=== PATIENT | female | born 1990 | race Caucasian/White ===

== ENCOUNTER 2016-08-08 10:48 | Emergency (ER) | payer OTHER ==
[2016-08-08] MEDS ORDERED: NS 1,000 ML IV ONE (11:15)
[2016-08-08] MEDS ORDERED: ZOFRAN IV ONE (11:15)
[2016-08-08] MEDS ORDERED: MORPHINE IV ONE (11:15)
--- NOTE | 2016-08-08 11:17 | PROVIDER DOCUMENTATION ---
HPI-Abdominal Pain/GI Problem - General Chief Complaint: Abdominal Pain Stated Complaint: ABD PAIN,BACK PAIN Time Seen by Provider: 08/08/16 11:00 Source: patient Allergies/Adverse Reactions: Patient Allergies Allergy/AdvReac Type Severity Reaction Status Date / Time No Known Allergies Allergy Verified 08/08/16 11:44 - History of Present Illness-ABD Nature of Presenting Problems: Pt is a 25 yof who came to the ED with a cc of abdominal pain. Pt reports she had right sided abdominal pain since last night. Pt reports the pain comes and goes. When she got to work her pain came back and she was crying. Pt reports five years ago the doctor told her she needed to get her gallbladder taken out. Abdominal Pain Onset Location: reports: RLQ Pain Radiation: reports: back Quality of Pain: reports: cramping Severity in ED: reports: mild Onset/Duration: reports: last night Timing: reports: still present Activities at Onset: reports: light activity Exposure to sick contacts?: No Modifying Factors: improves with: massage, movement Last BM: unsure Dark Stools Present?: reports: none noticed Rectal Bleeding: reports: none Rectal Pain: reports: none Bruising or Bleeding Gums?: No Similar Symptoms Previously?: No Recently seen or treated by another doctor?: No Review of Systems - Adult - REVIEW OF SYSTEMS - ADULT Constitutional: denies: chills, fever Eyes: denies: blurred vision, double vision Ears, Nose, Mouth & Throat: reports: no symptoms reported Cardiovascular: denies: orthopnea, poor circulation Respiratory: reports: no symptoms reported Gastrointestinal: reports: abdominal pain. denies: difficulty swallowing, nausea, vomiting Genitourinary: reports: no symptoms reported Musculoskeletal: reports: back pain. denies: frequent leg cramps, joint swelling Integumentary: reports: no symptoms reported Neurological: reports: no symptoms reported Psychiatric: reports: no symptoms reported Endocrine: reports: no symptoms reported Hematologic/Lymphatic: reports: no symptoms reported Allergic/Immunologic: reports: no symptoms reported All Other Systems: Reviewed and Negative Past History - Adult - PAST MEDICAL HISTORY-ADULT Review of Records: reports: Old Records Reviewed, Nursing Assessment Review Major Childhood Illnesses: reports: denies history Cardiovascular: reports: denies history Respiratory: reports: denies history Gastrointestinal: reports: denies history Obstetrical/Gynecological: reports: denies history Genitourinary: reports: denies history Musculoskeletal: reports: denies history Neurological: reports: denies history Endocrine/Immune: reports: denies history Other Conditions: reports: denies history - FAMILY HISTORY Family History: reviewed, not pertinent Physical Exam-General - PHYSICAL EXAM-ADULT Initial Vital Signs Reviewed: Yes - CONSTITUTIONAL General Appearance: appears well, alert, no apparent distress - EYES Eyes: PERRL/EOMI, pink conjunctivae - HEAD, EARS, NOSE, MOUTH & THROAT HENMT: normocephalic/atraumatic, moist mucous membranes, normal ENT inspection - NECK Neck: non-tender, full range of motion, normal inspection - RESPIRATORY Respiratory: chest non-tender, lungs clear, normal breath sounds - CARDIOVASCULAR Cardiovascular: normal peripheral pulses, regular rate, rhythm, no edema - GASTROINTESTINAL (ABDOMEN) Abdominal Exam: normal bowel sounds, soft, tenderness - LYMPHATIC Lymphatic: no adenopathy - MUSCULOSKELETAL Back Exam: normal inspection, no CVA tenderness, no vertebral tenderness Extremity: normal range of motion, non-tender, normal gait - SKIN Integumentary: normal color, normal turgor, warm/dry - NEUROLOGIC Neurologic: grossly normal, no motor/sensory deficits - PSYCHIATRIC Psych/Mental Status: normal mood/affect, normal thought content, normal thought process, oriented x 3 Progress - PLAN OF CARE/RESULTS Progress/Plan/Lab Results: Vital Signs - 24 hr 08/08/16 10:54 Temperature 98.1 F Pulse Rate 80 Respiratory 18 Rate Blood Pressure 127/70 O2 Sat by Pulse 100 Oximetry Orders Category Date Time Status Saline Loc DIRECTED Care 08/08/16 11:15 Active NPO Diet 08/08/16 11:15 Active RENAL STONE SEARCH [CT] Stat Exams 08/08/16 11:15 Ordered US GB < RUQ (LIMITED) [US] Stat Exams 08/08/16 11:15 Ordered AMYLASE [CHEM] Stat Lab 08/08/16 11:15 Uncollected CBC WITH ELECTRONIC DIFF [HEME] Stat Lab 08/08/16 11:15 Uncollected COMPREHENSIVE METABOLIC PANEL [CHEM] Stat Lab 08/08/16 11:15 Uncollected LIPASE [CHEM] Stat Lab 08/08/16 11:15 Uncollected TEST-URINE [PREG] Stat Lab 08/08/16 11:15 Uncollected URINALYSIS W/POSS RFLX CULT [URINALYSIS] Stat Lab 08/08/16 11:15 Uncollected 0.9% Sodium Chloride Inj [Ns] 1,000 ml Med 08/08/16 11:15 Active IV 999 mls/hr Morphine Med 08/08/16 11:15 Discontinued 4 mg IV NOW ONE Ondansetron [Zofran] Med 08/08/16 11:15 Discontinued 4 mg IV NOW ONE - ULTRASOUND (By Radiology) 1 US Study: Abdomen (numerous 1cm gallstones, noundistended, mild R hydrorephrosis and mod hydrohreter and periureteral edema, no urolithiasis, may rep recently passed stone, rec f/u if sxs persist.) 2 US Study: Abdomen (1. Cholelithiasis with marginal thickening of the gallbldder wall but a reported positive sonographic Newton's sign. 2. Minimal prominence of the right renal collecting system of unkown acuity.) Departure - Departure Time of Disposition Order: 13:04 DIAGNOSIS: UTI (urinary tract infection) Qualifiers: Urinary tract infection type: site unspecified Hematuria presence: without hematuria Qualified Code(s): N39.0 - Urinary tract infection, site not specified Abdominal pain Qualifiers: Abdominal location: right lower quadrant Qualified Code(s): R10.31 - Right lower quadrant pain Gall stone Qualifiers: Cholecystitis presence: with cholecystitis Cholecystitis acuity: acute Biliary obstruction: without biliary obstruction Qualified Code(s): K80.00 - Calculus of gallbladder with acute cholecystitis without obstruction Disposition: HOME 01 Certified Medical Emergency: Emergent Condition: Stable Additional Instructions: Follow up with regular MD in 2-3 days. Return to ER if your symptoms worsen. Plenty of oral fluids. Prescriptions: Sulfamethoxazole/Trimethoprim [Bactrim Ds Tablet] 1 each PO BID #20 tablet Hydrocodone/APAP 5 mg/325 mg [Jewell-5] 1 each PO Q8H PRN PRN #10 tablet PRN Reason: Pain Ondansetron Odt [Zofran 4 mg Odt] 4 mg PO Q8H PRN PRN #10 tablet PRN Reason: Nausea And Vomiting Referrals: None,PCP [Primary Care Provider] - Forms: Return to School/Parent Work Instructions: Cholelithiasis, Urinary Tract Infection, [id number], Abdominal Pain, Adult, [id number] Attestation - Scribe Verification/Attestation Scribe:: Yumiko Arora Acting as Scribe for:: Toney Mera Scribe documention review:: This chart was documented by a scribe and accurately reflects the service the provider performed and the decisions made by the provider.
[2016-08-08 11:48] LABS: MANUAL DIFF NEEDED? NO; URINE MICRO REVIEW NEEDED? NO; URINE SOURCE CLEAN CATCH
[2016-08-08 11:52] LABS: BASO% 0.1 % (0.0-0.8); EOS# 0.05 X1000 (0.0-0.7); EOS% 0.6 % (0.0-10.0); HEMATOCRIT 37.5 % (37.0-47.0); HEMOGLOBIN 12.9 g/dL (12.0-16.0); IMM GRAN# 0.02 X1000 (0.0-0.04); IMM GRAN% 0.2 % (0.0-0.5); LYMPH# 1.88 X1000 (1.2-3.4); LYMPH% 21.9 % (20.5-51.1); MCH 29.6 PG (27-31); MCHC 34.4 g/dL (33-37); MONO# 0.61 X1000 (0.11-0.59); MONO% 7.1 % (1.7-9.3); MPV 10.5 FL (7.4-10.4); NEUT% 70.1 % (42.2-75.2); PLT 261 X1000 (130-400); RBC 4.36 XMIL (4.2-5.4)
[2016-08-08 11:53] LABS: BILIRUBIN URINE NEGATIVE (NEGATIVE); BLOOD URINE SMALL (NEGATIVE); COLOR YELLOW; GLUCOSE URINE NEGATIVE (NEGATIVE); LEUKOCYTES URINE LARGE (NEGATIVE); NITRITE URINE NEGATIVE (NEGATIVE); PH URINE 7.5; PROTEIN URINE 70 mg/dL (NEGATIVE); SP GRAVITY URINE 1.015; TURBIDITY URINE HAZY (CLEAR); UR EPITHELIAL CELLS <10 /HPF (<10); URINE BACTERIA 2+ /HPF; URINE CULTURE NEEDED? YES; URINE WBC TNTC /HPF (<10); UROBILINOGEN URINE NORMAL (NORMAL)
[2016-08-08] MEDS ORDERED: ROCEPHIN 1 GM/NS 50 ML IV ONE (12:04)
--- NOTE | 2016-08-08 12:29 | Diag Imaging Result Document ---
PROCEDURE NAME: RENAL STONE SEARCH - 08/08/[address] OF THE ABDOMEN AND PELVIS WITHOUT CONTRAST: FINDINGS: There are numerous 1 cm gallstones within the gallbladder. No gallbladder distention or wall edema is appreciated by CT. There is no urolithiasis. There is mild right hydronephrosis and moderate hydroureteronephrosis and mild periureteral edema. This may indicate a recently passed stone or ureteritis. Clinical correlation and follow up is suggested. The appendix appears normal. There is no free fluid within the pelvis. There are bilateral pars interarticularis defects incidentally noted at L5. No spondylolisthesis is identified. There are no extraluminal gas collections. No free fluid within the pelvis. IMPRESSION: 1. Numerous 1 cm gallstones within the gallbladder. This could be further evaluated with gallbladder ultrasound. 2. Moderate hydroureter and mild periureteral edema associated with mild hydronephrosis. This may indicate a recently passed stone or ureteritis. Clinical correlation and follow-up is recommended. 3. Bilateral pars interarticularis defects at L5. [facility]
[2016-08-08 12:30] LABS: AGAP 10; ALBUMIN 4.3 g/dL (3.5-5.0); ALKALINE PHOSPHATASE 82 U/L (32-104); AMYLASE 36 U/L (20-200); BUN 9 mg/dL (8-22); CALCIUM 9.1 mg/dL (8.8-10.2); CHLORIDE 97 mmol/L (98-107); COSMO 263; GOT 17 U/L (10-30); GPT 20 U/L (10-36); LIPASE 16 U/L (13-60); POTASSIUM 3.9 mmol/L (3.5-5.1); SODIUM 132 mmol/L (136-145); TCO2 25 mmol/L (25-35); TOTAL BILIRUBIN 0.54 mg/dL (0.20-1.00); TOTAL PROTEIN 7.4 g/dL (6.3-8.3)
--- NOTE | 2016-08-08 12:50 | Diag Imaging Result Document ---
PROCEDURE NAME: US GB < RUQ (LIMITED) - 08/08/2016 RIGHT UPPER QUADRANT ABDOMINAL ULTRASOUND: COMPARISON: None available. FINDINGS: There are numerous shadowing stones in the lumen of the gallbladder. The gallbladder is contracted. The gallbladder wall is marginally thickened, measuring up to 3.4 mm in thickness. This, at least in part, is probably due to contraction of the gallbladder. No pericholecystic fluid is identified. The common bile duct is normal in diameter. Sonographic Newton's sign was reported to be positive by the technologist. The liver, visualized pancreas, aorta, and IVC are essentially unremarkable. The right renal collecting system is slightly prominent. This is of unknown acuity and certainly may be chronic. The right kidney is unremarkable otherwise. IMPRESSION: 1. Cholelithiasis with marginal thickening of the gallbladder wall but a reported positive sonographic Newton's sign. 2. Minimal prominence of the right renal collecting system of unknown acuity.
[2016-08-08 13:28] VITALS: BP 118/62
== END 2016-08-08 13:28 | disposition home or self-care (01) ==
LOC: ED 10:48
DX: N39.0 Urinary tract infection, site not specified (principal); K80.00 Calculus of gallbladder with acute cholecystitis without obstruction; R10.31 Right lower quadrant pain; N13.30 Unspecified hydronephrosis; N13.4 Hydroureter; M54.9 Dorsalgia, unspecified; R10.819 Abdominal tenderness, unspecified site
CPT/HCPCS: 74176; 76705; 80053; 81001; 82150; 83690; 85025; 87077; 87088; 87186; 96365; 96375; J0696; J2270; J2405; J7030

== ENCOUNTER 2019-05-05 17:19 | Inpatient (IN) ==
[2019-05-05 17:44] LABS: URINE SOURCE VOIDED
[2019-05-05 17:54] LABS: BILIRUBIN URINE NEGATIVE (NEGATIVE); BLOOD URINE TRACE (NEGATIVE); CLARITY SL. CLOUDY (CLEAR); COLOR YELLOW; GLUCOSE URINE NEGATIVE (NEGATIVE); KETONE URINE 2+(Moderate) mg/dL (NEGATIVE); LEUKOCYTES URINE 2+ (NEGATIVE); NITRITE URINE POSITIVE (NEGATIVE); PH URINE 6.5; PROTEIN URINE TRACE mg/dL (NEGATIVE); UROBILINOGEN URINE 1 mg/dL
[2019-05-05] MEDS ORDERED: LR 500 ML IV ONE (18:27)
[2019-05-05] MEDS ORDERED: KEFZOL 1 GM/D5W 1 GM/50 ML IVPB IV PRN (18:27)
[2019-05-05] MEDS ORDERED: REGLAN PO ONE (18:27)
[2019-05-05] MEDS ORDERED: PEPCID PO ONE (18:27)
[2019-05-05] MEDS ORDERED: LR 1,000 ML IV SCH (18:30)
[2019-05-05] MEDS ORDERED: BICITRA ONE (19:07)
[2019-05-05 19:16] LABS: BASO# 0.01 X1000 (0.0-0.2); BASO% 0.1 % (0.0-0.8); EOS# 0.07 X1000 (0.0-0.7); EOS% 0.8 % (0.0-10.0); HEMATOCRIT 33.9 % (37.0-47.0); HEMOGLOBIN 11.2 g/dL (12.0-16.0); IMM GRAN# 0.04 X1000 (0.0-0.04); IMM GRAN% 0.5 % (0.0-0.5); LYMPH% 26.4 % (20.5-51.1); MCH 29.5 PG (27-31); MCV 89.2 FL (81-99); MONO# 0.65 X1000 (0.11-0.59); MONO% 7.8 % (1.7-9.3); MPV 11.4 FL (7.4-10.4); NEUT# 5.36 X1000 (1.4-6.5); NEUT% 64.4 % (42.2-75.2); PLT 194 X1000 (130-400); RDW 13.6 % (11.5-14.5); WBC 8.33 X1000 (4.8-10.8)
[2019-05-05] MEDS ORDERED: NEO-SYNEPHRINE ONE (19:23)
[2019-05-05] MEDS ORDERED: DECADRON ONE (19:23)
[2019-05-05] MEDS ORDERED: ROBINUL ONE (19:23)
[2019-05-05] MEDS ORDERED: SODIUM CHLORIDE 0.9% 10 ML ONE ×2 (19:23→21:26)
[2019-05-05] MEDS ORDERED: PITOCIN ONE (19:23)
[2019-05-05] MEDS ORDERED: TORADOL ONE (19:23)
[2019-05-05] MEDS ORDERED: ZOFRAN ONE (19:23)
[2019-05-05] MEDS ORDERED: DURAMORPH ONE (19:23)
[2019-05-05] MEDS ORDERED: FENTANYL ONE (19:23)
[2019-05-05] MEDS ORDERED: BENADRYL IV PRN (22:15)
[2019-05-05] MEDS ORDERED: ZOFRAN IV PRN ×2 (22:15)
[2019-05-05] MEDS ORDERED: ZOFRAN ODT PO PRN (22:15)
[2019-05-05] MEDS ORDERED: NARCAN INJ PRN (22:15)
--- NOTE | 2019-05-05 22:46 | HISTORY AND PHYSICAL ---
HISTORY OF PRESENT ILLNESS: Mrs. Fried is a 28-year-old G 3, P 2-0-0-2 at 38 weeks and 6 days based on 1st trimester ultrasound who presents to Labor and Delivery with complaint of leakage of fluid. The patient is found to be grossly ruptured. The patient reports good movements. Admits to occasional contractions. Denies severe pain with contractions and denies vaginal bleeding. Current per patient reports routine care. No complications during . However, on records the patient failed 1 hour oral glucose tolerance test and passed 3 hour oral glucose tolerance test. MEDICATIONS: Include vitamins. PAST MEDICAL HISTORY: None. PAST SURGICAL HISTORY: History of ear surgery. Two prior sections. OBSTETRICAL HISTORY: G3, P2-0-0-2. Two prior full-term deliveries. DIRECTOR OF HOUSING HISTORY: Denies STD exposure. Menarche age 11. ALLERGIES: No known drug allergies. FAMILY HISTORY: Noncontributory. SOCIAL HISTORY: Positive history of tobacco use prior to . Patient reports quitting or tobacco cessation with current . Denies alcohol or drug use. VITAL SIGNS: Stable. Weight 230 pounds. Height 5 feet 6 inches. PHYSICAL EXAMINATION: GENERAL: No acute distress. Alert, awake, oriented x3. CARDIOVASCULAR: Regular rate and rhythm. Positive S1 and S2. RESPIRATORY: Clear to auscultation bilaterally. ABDOMEN: Gravid, nontender, soft. PELVIC EXAM: Grossly ruptured. ROM plus positive. Closed, thick and high. Electronic monitoring category 1 tracing. Reactive NST. [place] contractions occurring every 3 to 5 minutes. LABS: GBS negative. membranes are ROM plus positive. Urine nitrite positive. ASSESSMENT: Mrs. Fried is a 28-year-old G3, P2-0-0-2 at 38 weeks and 6 days, who presents to Labor and Delivery with premature rupture of membranes and a history of prior x2 and a urinary tract infection. PLAN: 1. Admit to Labor and Delivery for repeat delivery. 2. Continuous monitoring. 3. Obtain routine labs for repeat . 4. IV antibiotics for prophylaxis and treatment of urinary tract infection. 5. Patient counseled on the risk of repeat delivery, not limited to bleeding, infection, injury to surrounding organs including bowel, bladder, ureter, nerves and blood vessels. The patient understands the risks and agrees to the procedure. All questions addressed.
[2019-05-05] MEDS ORDERED: DULCOLAX PR PRN (22:56)
[2019-05-05] MEDS ORDERED: DEMEROL PO PRN ×2 (22:56)
[2019-05-05] MEDS ORDERED: PITOCIN IM PRN (22:56)
[2019-05-05] MEDS ORDERED: ATARAX PO PRN (22:56)
[2019-05-05] MEDS ORDERED: HYDROXYZINE IM PRN (22:56)
[2019-05-05] MEDS ORDERED: AMBIEN PO PRN (22:56)
[2019-05-05] MEDS ORDERED: M-M-R II VACCINE SUBQ ONE (22:56)
[2019-05-05] MEDS ORDERED: PITOCIN 20 UNITS/NS 20 UNITS/1,000 ML IV.SOLN IV ONE (22:56)
[2019-05-05] MEDS ORDERED: PHENERGAN IM PRN (22:56)
[2019-05-05] MEDS ORDERED: BOOSTRIX VACCINE IM ONE (22:56)
[2019-05-05] MEDS ORDERED: DEMEROL IM PRN (22:56)
[2019-05-05] MEDS ORDERED: PITOCIN 10 UNITS/NS 1,000 ML IV SCH (23:00)
[2019-05-06] MEDS: OFIRMEV 1000 MG/ISOTONIC SOLN 1,000 MG/100 ML BOTTLE IV SCH ×3 (01:00→13:10)
[2019-05-06] MEDS: TORADOL IV SCH ×2 (03:19→09:30)
--- NOTE | 2019-05-06 03:58 | HISTORY AND PHYSICAL ---
HISTORY OF PRESENT ILLNESS: The patient is a 28-year-old white female, G3, P2, with a history of x2. She will be scheduled for a repeat on 05/06/2019. She will be 39 weeks at that time. care significant for rubella nonimmune status, otherwise unremarkable . Group B streptococcus culture was negative. PAST MEDICAL HISTORY: Unremarkable. PAST SURGICAL HISTORY: . PAST OBSTETRICAL HISTORY: G3, P2. GYNECOLOGICAL HISTORY: Menarche at age 11. FAMILY HISTORY: Significant for high blood pressure. REVIEW OF SYSTEMS: All systems reviewed and noncontributory. SOCIAL HISTORY: Tobacco use: None. Alcohol use: None. MEDICATIONS: vitamins. ALLERGIES: No known drug allergies. PHYSICAL EXAMINATION: GENERAL: Height 5 feet 6 inches, weight 230 pounds. VITAL SIGNS: Blood pressure 126/74, pulse of 80, respirations 18. heart rate 133. HEENT: Pupils equal, round and reactive to light and accommodation. Extraocular movements intact. Oropharynx clear. NECK: Supple. No thyromegaly. LUNGS: Clear to auscultation. HEART: Regular rate and rhythm. ABDOMEN: Gravid, nontender. EXTREMITIES: No clubbing, cyanosis or edema noted. NEUROLOGIC: Cranial nerves 2-12 grossly intact. Motor 5/5. DTRs 2+ bilaterally. ASSESSMENT AND PLAN: Intrauterine at 39 weeks with history of section, for elective repeat section. Patient counseled about the risks of surgery including bleeding, infection or bowel or bladder injury. The patient will receive measles, mumps and rubella vaccine after delivery. Surgery is scheduled for 05/06/2019. cc: Link Bridges III, MD
[2019-05-06 04:12] LABS: UR AMPHETAMINES QUAL NONE DETECTED (NONE DETECT); UR BARBITUATES QUAL NONE DETECTED (NONE DETECT); UR BENZODIAZEPIN QUAL NONE DETECTED (NONE DETECT); UR CANNABINOIDS QUAL NONE DETECTED (NONE DETECT); UR COCAINE QUAL NONE DETECTED (NONE DETECT); UR METHADONE QUAL NONE DETECTED (NONE DETECT); UR METHAMPHETAMINE QUAL NONE DETECTED (NONE DETECT); UR OPIATES QUAL NONE DETECTED (NONE DETECT); UR OXYCODONE QUAL NONE DETECTED (NONE DETECT); UR PCP QUAL NONE DETECTED (NONE DETECT); UR PROPOXYPHENE QUAL NONE DETECTED (NONE DETECT); UR TCA QUAL NONE DETECTED (NONE DETECT)
[2019-05-06 06:18] LABS: EOS# 0.01 X1000 (0.0-0.7); EOS% 0.1 % (0.0-10.0); HEMATOCRIT 31.3 % (37.0-47.0); HEMOGLOBIN 10.2 g/dL (12.0-16.0); IMM GRAN# 0.04 X1000 (0.0-0.04); IMM GRAN% 0.3 % (0.0-0.5); LYMPH# 1.63 X1000 (1.2-3.4); LYMPH% 13.2 % (20.5-51.1); MCH 29.4 PG (27-31); MCHC 32.6 g/dL (33-37); MCV 90.2 FL (81-99); MONO# 0.86 X1000 (0.11-0.59); MPV 11.3 FL (7.4-10.4); NEUT# 9.79 X1000 (1.4-6.5); NEUT% 79.4 % (42.2-75.2); PLT 196 X1000 (130-400); RBC 3.47 XMIL (4.2-5.4); RDW 13.4 % (11.5-14.5); WBC 12.33 X1000 (4.8-10.8)
[2019-05-06] MEDS: MYLICON PO SCH ×3 (09:30→22:31)
[2019-05-06] MEDS ORDERED: BENADRYL PO PRN (15:02)
--- NOTE | 2019-05-06 15:12 | OB/GYN PROGRESS NOTE ---
Progress Note OB - . Patient Problems: Current Active Problems Problem Status Onset S/P repeat low transverse Acute History of 2 sections Acute OB Progress Note: Vital Signs - 24 hr 05/05/19 20:00 05/05/19 21:30 05/05/19 21:35 Temperature 97.9 F 97.9 F Pulse Rate 86 94 H Respiratory Rate 18 18 Blood Pressure 124/78 123/70 Blood Pressure [Left Arm] 109/56 O2 Sat by Pulse Oximetry 98 95 05/05/19 21:45 05/05/19 21:55 05/05/19 22:05 Temperature Pulse Rate 97 H 74 83 Respiratory Rate 18 18 18 Blood Pressure Blood Pressure [Left Arm] 112/56 113/60 141/73 O2 Sat by Pulse Oximetry 98 100 96 05/05/19 22:15 05/05/19 22:25 05/05/19 22:35 Temperature Pulse Rate 83 82 87 Respiratory Rate 18 18 18 Blood Pressure 120/59 Blood Pressure [Left Arm] 139/54 153/61 120/59 O2 Sat by Pulse Oximetry 96 96 96 05/06/19 00:00 05/06/19 04:00 05/06/19 07:30 Temperature 98.2 F 97.9 F 97 F L Pulse Rate 67 61 56 L Respiratory Rate 18 18 20 Blood Pressure 111/59 106/62 101/60 Blood Pressure [Left Arm] O2 Sat by Pulse Oximetry 97 95 97 05/06/19 12:00 Temperature 97.4 F L Pulse Rate 69 Respiratory Rate 20 Blood Pressure 112/69 Blood Pressure [Left Arm] O2 Sat by Pulse Oximetry 98 Laboratory Results - last 24 hr 05/05/19 05/05/19 05/05/19 17:30 17:30 17:30 WBC RBC Hgb Hct MCV MCH MCHC RDW Std Deviation Plt Count MPV Immature Gran % (Auto) Neut % (Auto) Lymph % (Auto) [place] % (Auto) Eos % (Auto) Baso % (Auto) Immature Gran # (Auto) Neut # (Auto) Lymph # (Auto) [place] # (Auto) Eos # (Auto) Baso # (Auto) Urine Source VOIDED Urine Color YELLOW Urine Clarity SL. CLOUDY A Urine pH 6.5 Ur Specific [place] 1.020 Urine Protein TRACE A Urine Ketones 2+(Moderate) A Urine Blood TRACE Urine Nitrite POSITIVE A Urine Bilirubin NEGATIVE Urine Urobilinogen 1 Urine WBC 2+ A Urine Glucose NEGATIVE Membranes Rupture POSITIVE Urine Opiates Screen NONE DETECTED Ur Oxycodone Screen NONE DETECTED Urine Methadone Screen NONE DETECTED U Propoxyphene Qual NONE DETECTED Ur Barbituates Screen NONE DETECTED Ur Tricyclics Screen NONE DETECTED Ur Phencyclidine Scrn NONE DETECTED Ur Amphetamines Screen NONE DETECTED U Methamphetamines Scrn NONE DETECTED U Benzodiazepines Scrn NONE DETECTED Urine Cocaine Screen NONE DETECTED U Cannabinoids Screen NONE DETECTED RPR 05/05/19 05/05/19 05/06/19 19:12 21:26 05:51 WBC 8.33 12.33 H RBC 3.80 L 3.47 L Hgb 11.2 L 10.2 L Hct 33.9 L 31.3 L MCV 89.2 90.2 MCH 29.5 29.4 MCHC 33.0 32.6 L RDW Std Deviation 13.6 13.4 Plt Count 194 196 MPV 11.4 H 11.3 H Immature Gran % (Auto) 0.5 0.3 Neut % (Auto) 64.4 79.4 H Lymph % (Auto) 26.4 13.2 L [place] % (Auto) 7.8 7.0 Eos % (Auto) 0.8 0.1 Baso % (Auto) 0.1 0.0 Immature Gran # (Auto) 0.04 0.04 Neut # (Auto) 5.36 9.79 H Lymph # (Auto) 2.20 1.63 [place] # (Auto) 0.65 H 0.86 H Eos # (Auto) 0.07 0.01 Baso # (Auto) 0.01 0.00 Urine Source Urine Color Urine Clarity Urine pH Ur Specific [place] Urine Protein Urine Ketones Urine Blood Urine Nitrite Urine Bilirubin Urine Urobilinogen Urine WBC Urine Glucose Membranes Rupture Urine Opiates Screen Ur Oxycodone Screen Urine Methadone Screen U Propoxyphene Qual Ur Barbituates Screen Ur Tricyclics Screen Ur Phencyclidine Scrn Ur Amphetamines Screen U Methamphetamines Scrn U Benzodiazepines Scrn Urine Cocaine Screen U Cannabinoids Screen RPR NON-REACTIVE S: Patient without complaints. Denied fever, chills, N/V, SOB, or chest pain. Pain controlled. Morrison in place still. Tolerating PO. No flatus yet. Formula- feeding by choice. Does not desire anything for control. O: Gen: NAD CV: RRR Pulm: CTAB; no rhonchi, wheezing, or rales Abd: soft, minimal lower abdominal TTP, non distended; active bowel sounds; fundus firm at below umbilicus Ext: no LE TTP Labs: reviewed A&P: 28yo s/p CD#3 at 38w6d due to PROM, 1. POD#1 -No concerns -Morrison and IV fluids discontinued -Ambulate as tolerated -Pt may shower and remove dressing 2. Rubella NON-immune -MMR booster
[2019-05-06] MEDS: NORCO-5 PO PRN ×2 (16:01→22:31)
[2019-05-06] MEDS: MOTRIN PO PRN (16:02)
[2019-05-06] MEDS: PERICOLACE PO SCH (22:31)
[2019-05-06] MEDS ORDERED: LR 1,000 ML IV SCH (22:56)
[2019-05-07] MEDS: MYLICON PO PRN ×2 (01:59→22:15)
[2019-05-07] MEDS: MOTRIN PO PRN ×3 (01:59→21:00)
--- NOTE | 2019-05-07 08:46 | OB/GYN PROGRESS NOTE ---
Progress Note OB - . Patient Problems: Current Active Problems Problem Status Onset S/P repeat low transverse Acute History of 2 sections Acute OB Progress Note: Vital Signs - 24 hr 05/06/19 12:00 05/06/19 16:00 05/06/19 22:00 Temperature 97.4 F L 97.5 F L 96.9 F L Pulse Rate 69 60 65 Respiratory Rate 20 20 18 Blood Pressure 112/69 116/78 116/66 O2 Sat by Pulse Oximetry 98 98 97 05/07/19 02:00 Temperature 96.9 F L Pulse Rate 64 Respiratory Rate 18 Blood Pressure 109/64 O2 Sat by Pulse Oximetry 98 Laboratory Results - last 24 hr 05/05/19 21:26 Blood Type A POSITIVE Antibody Screen NEGATIVE S: Patient without complaints. Denied fever, chills, N/V, SOB, or chest pain. Pain controlled. Voiding without difficulty. Tolerating PO. Flatus present. Formula-feeding by choice. Considering OCPs for control. O: Gen: NAD CV: RRR Pulm: CTAB; no rhonchi, wheezing, or rales Abd: soft, minimal lower abdominal TTP, non distended; active bowel sounds; fundus firm at below umbilicus Incision: clear, dry intact with griselda present Ext: no LE TTP Labs: reviewed A&P: 28yo s/p CD#3 at 38w6d due to PROM, 1. POD#2 -No concerns; pt meeting milestones -Ambulate as tolerated 2. Rubella NON-immune -MMR booster
[2019-05-07] MEDS: PRECARE PO SCH (10:18)
[2019-05-07] MEDS: MYLICON PO SCH ×4 (10:18→21:00)
[2019-05-07] MEDS: NORCO-5 PO PRN ×3 (10:24→22:12)
[2019-05-07] MEDS: PERICOLACE PO SCH (21:01)
[2019-05-08 07:37] VITALS: BP 121/74
--- NOTE | 2019-05-08 08:18 | DISCHARGE SUMMARY ---
ADMISSION DATE: 05/05/2019 DISCHARGE DATE: 05/08/2019 ADMISSION DIAGNOSIS: A 28-year-old, white female, 3, para 2, at 38 and 6/7 weeks gestation with a history of prior section, who had spontaneous rupture of membranes. No issues during care. MEDICATIONS: vitamins. PAST MEDICAL HISTORY: Unremarkable. PAST SURGICAL HISTORY: Ear surgery and section x2. OB HISTORY: G 3, P 2 , section x2. DIGITAL STRATEGIST HISTORY: Denies STD exposure. Menarche at age 11. ALLERGIES: No known drug allergies. FAMILY HISTORY: Noncontributory. SOCIAL HISTORY: Tobacco use positive in prior , quit with the current . VITAL SIGNS: Weight 230 pounds, height 5 feet 6 inches. PHYSICAL EXAMINATION: General: No acute distress. Alert, awake, and oriented x3. Cardiovascular: Regular rate and rhythm. Lungs: Clear to auscultation bilaterally. Abdomen: Gravid, nontender. Pelvic Examination: Grossly rupture membrane test was positive. Cervix was closed, thick, and high. DIAGNOSTIC DATA: monitoring showed a category 1 heart tracing, reactive NST, and contractions every 3 to 5 minutes. LABORATORY DATA: Group B strep culture was negative. ASSESSMENT: A 28-year-old, 3, para 2, at 38 and 6/7 weeks presents with spontaneous rupture of membranes and a prior history of section x2. We will proceed with repeat section. Patient was counseled about the risks of surgery including bleeding, infection, bowel or bladder injury. The patient had a repeat section with delivery of a female infant, 7 pounds 11 ounces, Apgars of 8 and 9, on 05/05/2019. HOSPITAL COURSE: The patient did well postoperatively. Her hemoglobin had dropped from 11.2 to 10.2 and hematocrit had dropped from 33.9 preoperatively to 31.3 postoperatively. The patient had mild vaginal bleeding and vital signs were stable. She was advanced on her diet and became ambulatory. On postop day #2-2, was wishing to be discharged home. She had return of bowel activity. DISCHARGE PLANS: Patient will be discharged home with followup on 05/12/2019 for staple removal. She is instructed on pelvic rest for 6 weeks as well as lifting precautions for 6 weeks. DISCHARGE MEDICATIONS: [place] 10 (dispense 20), Colace 100 mg (dispense 30), iron sulfate 325 mg (dispense 30), and Motrin 800 mg (dispense 30). cc: Link Bridges III, MD
[2019-05-08] MEDS: MYLICON PO SCH (08:52)
[2019-05-08] MEDS: PRECARE PO SCH (08:53)
--- NOTE | 2019-05-10 21:25 | OPERATIVE NOTE ---
PROCEDURE DATE: 05/05/2019 SURGEON: Nate Rogers DO TEMPERATURE LOGGING OPERATOR: Tomasa Galvan PREOPERATIVE DIAGNOSES: 1. Intrauterine at 38 weeks and 6 days. 2. Previous section x2. 3. Premature rupture of membranes. POSTOPERATIVE DIAGNOSES: 1. Intrauterine at 38 weeks and 6 days. 2. Previous section x2. 3. Premature rupture of membranes. PROCEDURE PERFORMED: Repeat low transverse section. ANESTHESIA: Spinal. ESTIMATED BLOOD LOSS: 500 mL. FINDINGS: Viable female infant weighing 7 pounds 11 ounces with Apgars of 8 and 9 at 1 and 5 minutes respectively. Normal-appearing uterus, ovaries, and fallopian tubes bilaterally. COMPLICATIONS: None. SURGICAL RISKS: The patient was informed of the risks and benefits of the procedure. Risks included, but were not limited to, bleeding, infection, injury to internal organs and possible hysterectomy. The patient expressed understanding of the risks involved. All questions were answered, and the patient consented to the procedure. DESCRIPTION OF PROCEDURE: The patient was taken to the operating room where a time-out was performed to confirm correct patient and correct procedure. Spinal anesthesia was adequately established, and prophylactic intravenous antibiotics were administered. The patient was then placed in a dorsal supine position with a left tilt of the hips. The patient was then prepped and draped in the usual sterile fashion for a Pfannenstiel skin incision. An incision was made in the skin with a surgical scalpel, and sharp dissection was carried out over subsequent layers of tissue, including the fascia followed by the Bovie electrocautery for hemostasis. The fascia was incised at the midline and the fascial incision was extended bilaterally using the Bovie electrocautery. The inferior edge of the fascial incision was grasped with Bill clamps, tented up and the underlying rectus muscle was dissected off bluntly with the Bovie electrocautery. Attention was then turned to the superior edge of the fascia which was grasped with Bill clamps, tented up and the underlying rectus muscle dissected off using the Bovie electrocautery. The rectus muscle was then divided at the midline, and the peritoneum was identified, tented up, at its upper margin taking care to avoid the bladder, and then entered bluntly. The peritoneal incision was extended superiorly and inferiorly using a Bovie electrocautery with good visualization of the bladder. The bladder blade was inserted, and the vesical peritoneum was identified. It was grasped with smooth pickups and cut laterally to both sides using the Metzenbaum scissors. A bladder flap was then created using blunt and sharp dissection with the Metzenbaum scissors. The bladder blade was reinserted, and a transverse incision was made in the lower uterine segment using the scalpel. The uterine incision was extended bilaterally using blunt dissection. The amniotic sac was entered, and the amniotic fluid was noted to be clear. The surgeon's hand was placed into the uterine cavity. The head was identified, elevated into the abdomen and delivered through the uterine incision with the assistance of fundal pressure. The infant was examined for nuchal cord. No nuchal cord was identified. The infant was then delivered with traction and assistance of fundal pressure. The 's oral and nasal passages were bulb suctioned. On delivery, the cord was clamped and cut. The was passed off the table to the waiting transmitter tester staff for further care. Cord blood was obtained for analysis and routine blood testing. The placenta was manually extracted intact with a three- vessel cord. Oxytocin was administered by IV infusion to enhance uterine contractions. The uterus was exteriorized and cleared of all clots and remaining products of conception. The uterine incision was reapproximated using 1-0 Monocryl in a running locked fashion. Non- hemostatic areas were reinforced with 1-0 Monocryl in a [id number] stitch. Good hemostasis was confirmed. The uterus was replaced into the abdomen. The pericolic gutters were cleared of all clots. Surgicel was applied to the lower uterine segment to reinforce hemostasis. The fascia was reapproximated using 0 Vicryl in a running nonlocking fashion. The subcutaneous fat was reapproximated using 2-0 plain gut in a running nonlocking fashion. The skin was reapproximated using griselda. All needle, sponge, and instrument counts were noted to be correct x2 at the end of the procedure. The patient tolerated the procedure well and was transferred to the recovery room in stable condition.
== END 2019-05-08 10:55 | disposition home or self-care (01) | DRG 788 ==
LOC: P.OPLD 17:19 → P.LD 17:21
PROVIDERS: ADMIT Obstetrics & Gynecology; ATTEND Obstetrics & Gynecology